=== PATIENT | female | born 1965 | race Caucasian/White ===

== ENCOUNTER 2016-09-16 05:12 | Day surgery (SDC) | payer BC ==
[2016-09-13 10:21] LABS: HEMATOCRIT 42.7 % (36.0-48.0); HEMOGLOBIN 14.6 g/dL (12.0-16.0)
[2016-09-13 10:36] LABS: BUN (BLOOD UREA NITROGEN) 11 MG/DL (6-23); CALCIUM, SERUM 9.4 MG/DL (8.5-10.4); CHLORIDE, SERUM 107 MMOL/L (96-112); CO2 (CARBON DIOXIDE) 26 MMOL/L (24-34); CREATININE 0.87 MG/DL (0.55-1.02); GFR AFRICAN AMERICAN 91 ML/MIN (>=60); GFR NON AFRICAN AMERICAN 79 ML/MIN (>=60); GLUCOSE, SERUM 142 MG/DL (60-99); SODIUM, SERUM 143 MMOL/L (135-148)
--- NOTE | ~2016-09-16 | OP ---
Record Of Operation [facility] [address] [place]. 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 POSTOPERATIVE DIAGNOSIS: Lateral recess and medial foraminal stenosis at L4-5, left and right side. PROCEDURE: 1. Microscopic navigation-assisted surgery. 2. Left and right L4-5 hemilaminotomy and foraminotomy. CREATIVE WRITER: Dave Anderson. ANESTHESIA: General. ESTIMATED BLOOD LOSS: Less than 10 mL. INDICATIONS FOR SURGERY: A 50-year-old female with back and buttock and leg pain. It is worse with standing and walking, better when sitting. She has had time, medication, and conservative care, which has failed. She is brought to surgery for a left and right L4-5 hemilaminotomy and possible microdiskectomy. Prior to surgery, risks, benefits, alternatives, and expectations have been explained. Consent form has been signed. DESCRIPTION OF PROCEDURE: Today, in the preop holding, the patient was identified and all questions were answered. The patient voiced understanding of the risks with willingness to accept those and requested to proceed with surgery. Also please note, because of the complexity of surgery and the need to identify the correct level of surgery intraoperatively as well as the desire to carry out the safest and most precise dissection, I feel intraoperative navigation is mandatory. Operation antibiotic prophylaxis given. Neurophysiology monitoring leads inserted. The patient brought to the operative suite. General anesthetic including endotracheal intubation was administered. The patient was placed prone on a Mickey spine frame. Bony prominences were carefully padded. Thoracolumbar spine was scrubbed with Hibiclens solution. DuraPrep was painted. Sterile drapes applied. A small stab wound was carried out on the right posterior superior iliac spine. A percutaneous pin with navigational frame attached was inserted into the PSIS. Intraoperative CT scan with O-arm obtained, CT information used to register the navigational system. With navigational assistance, I identified the L4-5 level. In the midline, a 2 cm skin incision was carried out. A blunt navigated probe placed through the fascia muscle and Record Of Operation [facility] [address] [place]. [address] NAME: SALTY CASTILLO : 69 STATUS : REG [facility] PAT#: [id number] AGE: 50 ADM/REG DATE : 09/16/16 MR#: [id number] REPORT SERV DATE: 09/16/16 DICTATED BY: RUFINO LINCOLN DATE: 09/16/16 REPORT STATUS : Draft TRANSCRIBED BY: MILO DATE: 09/16/16 docked over the interlaminar space. Muscle dilators were inserted followed by placement of a tubular retractor attached to an arm mount on the table. The microscope was sterilely draped and used throughout the remainder of the procedure. With navigational assistance, I identified the amount of lamina of L4 and the amount of the medial facet joint of L4-5 that I was going to remove. I used a 3 mm nikko bur, removed 50% of lamina of L4 and 25% of medial facet joint of L4-5. The lateral thickened ligamentum flavum, which was hypertrophied, was removed. This was causing much of the lateral recess stenosis. Foraminotomy was completed with Kerrison. No disk herniation noted. Epidural hemostasis obtained with bipolar cautery. The wound was irrigated. The retractor was removed. I then moved to the left side. I placed a blunt navigated probe through the fascia and muscle and docked over the L4-5 interlaminar space on the left side using the same identical skin incision. The same dilation with muscle dilators, same placement of a tubular retractor. In the same hemilaminotomy, foraminotomy was carried out on the left as the right side. On the left side, there was more medial facet hypertrophy and lateral recess stenosis secondary to facet joint as well as ligamentum flavum. Afterwards the retractor was removed. The fascial opening closed with just a single interrupted #1 Vicryl suture, subcutaneous tissue closed with 2-0 Vicryl sutures, 2-0 vertical mattress nylon suture used for skin closure. Sterile dressings applied. The patient awakened, extubated, and taken to the recovery room in satisfactory condition and tolerated procedure well. Sponge, needle, and instrument counts were correct. No intraoperative complications noted. JULIÁN/MODL Rufino Lincoln D.O. / [id number] CC: Daksha Woodson M.D.
[~2016-09-16 05:12] MED LIST: B12 INJECT IM; CHLOR-TRIMETON4 MG PO; COQ-10200 MG PO; COZ25 PO; DESOGESTREL; ETHINYL ESTRADIOL; FISH-EPA1000 MG PO; KARIVA28 DAY PO; MAGOX4 PO; METADATE CD20 MG PO; METHYLIN20 MG PO; MOBIC15 MG PO; MUCINEX PO; NASACORTAQ NAS; OSTEO BI-FLEX1 EACH PO; PRILO PO; PROAIR HFA INH; PROZAC40 MG PO; QVAR80 MCG INH; REMICADE IV; SINGULAIR1 PO; VYTORIN 10/40 T1 TAB PO; WELLXL300 PO; ZOCOR10 PO; [UNRECOGNIZED DRUG - OTHER] PO
== END 2016-09-16 23:59 | disposition home or self-care (01) ==
LOC: SDC 05:12
PROVIDERS: Orthopaedic Surgery Orthopaedic Surgery of the Spine
PROC: 00NY0ZZ Release Lumbar Spinal Cord, Open Approach (ICD-10-PCS; principal; 2016-09-16 07:00)
DX: M51.36 Other intervertebral disc degeneration, lumbar region (principal); M48.06 Spinal stenosis, lumbar region; I10 Essential (primary) hypertension; J45.909 Unspecified asthma, uncomplicated; K50.90 Crohn's disease, unspecified, without complications; K21.9 Gastro-esophageal reflux disease without esophagitis; Z88.5 Allergy status to narcotic agent; Z79.51 Long term (current) use of inhaled steroids; Z79.1 Long term (current) use of non-steroidal anti-inflammatories (NSAID); Z79.899 Other long term (current) drug therapy
CPT/HCPCS: 80048; 84703; 85014; 85018; 88304; 88311; 93005; A9270-GY; J0690; J2250; J2274; J2405; J2710; J3010